=== PATIENT | male | born 1935 | race Caucasian/White ===

== ENCOUNTER 2018-05-05 12:23 | Inpatient (IN) | payer OTHER ==
[2018-05-02 10:00] LABS: BASOPHILS # (AUTO) 0.1 (0.0-0.1); BASOPHILS % 1.6 % (0.0-1.0); EOSINOPHILS # (AUTO) 1.4 (0.0-0.4); EOSINOPHILS % 18.2 % (0.0-6.0); HEMATOCRIT 45.1 % (38.2-49.6); LYMPHOCYTES # (AUTO) 1.8 (1.0-3.2); LYMPHOCYTES % 24.4 % (18.0-39.1); MEAN CORPUSCULAR HEMOGLOBIN 31.5 pg (28-32); MEAN CORPUSCULAR HGB CONC 33.3 g/dL (31-35); MEAN CORPUSCULAR VOLUME 94.7 fL (81-99); MONOCYTES # (AUTO) 0.8 (0.2-0.8); MONOCYTES % 10.2 % (4.4-11.3); NEUTROPHILS # (AUTO) 3.4 (2.1-6.9); NEUTROPHILS % 45.2 % (38.7-80.0); PLATELET COUNT 158 x10e3/uL (140-360); RED BLOOD COUNT 4.76 x10e6/uL (4.3-5.7); RED CELL DISTRIBUTION WIDTH 12.4 % (11.7-14.4)
[2018-05-02 10:21] LABS: ALANINE AMINOTRANSFERASE 20 IU/L (0-55); ALBUMIN 4.3 g/dL (3.5-5.0); ALBUMIN/GLOBULIN RATIO 1.7 (0.8-2.0); ALKALINE PHOSPHATASE 54 IU/L (40-150); ANION GAP 12.3 mmol/L (8-16); BLOOD UREA NITROGEN 17 mg/dL (7-26); BUN/CREATININE RATIO 20 (6-25); CALCIUM 9.4 mg/dL (8.4-10.2); CARBON DIOXIDE 28 mmol/L (22-29); CHLORIDE 104 mmol/L (98-107); CREATININE, SERUM 0.84 mg/dL (0.72-1.25); EST GLOMERULAR FILTRATION RATE > 60 ML/MIN (60-); GLUCOSE 70 mg/dL (74-118); POTASSIUM 4.3 mmol/L (3.5-5.1); SODIUM 140 mmol/L (136-145)
--- NOTE | 2018-05-02 10:35 | Diagnostic Imaging Report ---
PROCEDURE: Frontal and lateral views of the chest. COMPARISON: None. INDICATIONS: PREOP CXR FINDINGS: Lines/tubes: None. Lungs: There are patchy opacities at the lung bases without lobar consolidation. No evidence of pulmonary edema. Pleura: There is no pleural effusion or pneumothorax. Heart and mediastinum: The cardiomediastinal silhouette is unremarkable. Status post CABG. Atherosclerotic calcifications of the aortic arch. Bones: No acute bony abnormality. Status post median sternotomy. IMPRESSION: Patchy opacities at the lung bases, likely atelectasis. Follow-up chest radiograph is suggested in 6-8 weeks to assess for resolution. No evidence of lobar pneumonia or pulmonary edema. Dictated by: KATHRYN MUELLER M.D. on 05/02/2018 at 10:43 Electronically approved by: KATHRYN MUELLER M.D. on 05/02/2018 at 10:43
[2018-05-05] VITALS (24 sets, daily range): BP systolic 115–184; BP diastolic 71–120
[~2018-05-05] VITALS: Ht 177.8 cm; Wt 101.6 kg
[~2018-05-05 12:23] MED LIST: ACETAMINOPHEN 1000 MG/100 ML IV ONE; ASPIR 8181 MG PO; ATORVASTATIN CA20 MG PO; CALCIUM ACETAT667 MG PO; DEXAMETHASONE SOD PHOS INJ 4 MG/ML VIAL ONE; DOCUSATE SODIU100 MG PO; EPHEDRINE SULFATE INJ 50 MG/10 ML SYR ONE; FENTANYL CITRATE/PF 100MCG/2 ML INJ ONE; FERROUS SULFAT325 MG PO; GLYCOPYRROLATE INJ 1MG/ 5 ML SYR ONE; LIDOCAINE HCL 2% LOCAL INJ 5 ML SDV VIAL INJ ONE; LISINOPRIL2.5 MG PO; MAGNESIUM OXID400 MG PO; METOPROLOL SUCC50 MG PO; MIDAZOLAM HCL 2 MG/2 ML VIAL ONE; NEOSTIGMINE 5 MG/5ML SYR ONE; ONDANSETRON HCL INJ 2 MG/ML VIAL ONE; PROPOFOL IV EMULSION 10 MG/ML 20 ML VIAL ONE; ROCURONIUM BROMIDE 10 MG/ML 5ML VIAL ONE; SENNA LAXATIVE8.6 MG PO; SEVOFLURANE INHAL SOLN 250 ML PEN BTL ONE; TAMSULOSIN HCL0.4 MG PO
--- OUTSIDE RECORDS SUMMARY | 2018-05-05 12:25 | XMS REPORT ---
Author Author [facility] Address Unknown Phone Unavailable Care Team Providers Care Livestock Commission Agent Name Role Phone IRA ARAYA Unavailable Unavailable Problems This patient has no known problems. Allergies, Adverse Reactions, Alerts This patient has no known allergies or adverse reactions. Medications This patient has no known medications. Results Test Description Test Time Test Comments Text Results Atomic Results Result Comments CHEST 2 VIEWS 2018-05-02 10:43:00 [place] [address] Patient Name: BRIELLE PACHECO MR #: [id number] : 1935 Age/Sex: 83/M Req #: [id number] [facility] Physician: Ordered by: IRA ARAYA MD Report #: [id number] Location: OR Room/Bed: Procedure: [id number] DX/CHEST 2 VIEWS Exam Date: Exam Time: REPORT STATUS: Signed PROCEDURE: Frontal and lateral views of the chest. COMPARISON: None. INDICATIONS: PREOP CXR FINDINGS: Lines/tubes: None. Lungs: There are patchy opacities at the lung bases without lobar consolidation. No evidence of pulmonary edema. Pleura: There is no pleural effusion or pneumothorax. Heart and mediastinum: The cardiomediastinal silhouette is unremarkable. Status post CABG. Atherosclerotic calcifications of the aortic arch. Bones: No acute bony abnormality. Status post median sternotomy. IMPRESSION: Patchy opacities at the lung bases, likely atelectasis. Follow-up chest radiograph is suggested in 6-8 weeks to assess for resolution. No evidence of lobar pneumonia or pulmonary edema. Dictated by: KATHRYN MUELLER M.D. on 05/02/2018 at 10:43 Electronically approved by: KATHRYN MUELLER M.D. on 05/02/2018 at 10:43 Dictated By: KATHRYN MUELLER MD 1043 Transcribed By: JORGE on 05/02/18 1043 COPY TO: IRA ARAYA MD
[2018-05-05] MEDS ORDERED: CEFAZOLIN SOD 1 GM VIAL ONE (12:44)
[2018-05-05] MEDS ORDERED: THROMBIN FOR SOLN 5,000 UNIT VIAL ONE (13:13)
[2018-05-05] MEDS ORDERED: MANNITOL 25% 12.5GM/50ML 0 ML ONE (13:13)
[2018-05-05] MEDS ORDERED: GELATIN SPONGE 12-7MM ONE (13:13)
[2018-05-05] MEDS ORDERED: HEPARIN SOD/SOD CHLORIDE 1,000 ML ONE (13:55)
[2018-05-05] MEDS: D5.45%NS/KCL 20MEQ 1,000 ML IV SCH (16:41)
[2018-05-05] MEDS ORDERED: DIPHENHYDRAMINE HCL INJ 50 MG/ML VIAL IM PRN (16:45)
[2018-05-05] MEDS ORDERED: NALOXONE HCL INJ 0.4 MG/ML AMP IV PRN (16:45)
[2018-05-05] MEDS ORDERED: ONDANSETRON HCL INJ 2 MG/ML VIAL IV PRN (16:45)
[2018-05-05] MEDS ORDERED: ACETAMINOPHEN 1000 MG/100 ML IV PRN (16:45)
[2018-05-05] MEDS: SODIUM CHLORIDE 0.9% 250ML IRRIG IR SCH ×2 (16:45→20:45)
[2018-05-05] MEDS: DOCUSATE SODIUM 100 MG CAP PO SCH (17:00)
[2018-05-05] MEDS ORDERED: FENTANYL CITRATE/PF 100MCG/2 ML INJ ONE (17:15)
[2018-05-05] MEDS ORDERED: HYDROMORPHONE 2MG/ML 2 MG/ML ML ONE (17:30)
[2018-05-05] MEDS ORDERED: MORPHINE SULFATE 1 MG/ML 30ML PCA ONE (17:49)
[2018-05-05] MEDS ORDERED: MORPHINE SULFATE 2 MG/ML SYR ONE (17:51)
--- NOTE | 2018-05-05 18:07 | Diagnostic Imaging Report ---
Examination: Single AP view of the chest. COMPARISON: None. INDICATION: Rule out pneumothorax IMPRESSION: Exam limited by patient rotation. 1. Lines and Tubes: Right sided IJ catheter with distal tip projecting in the mid SVC. Enteric tube is below the left hemidiaphragm, however, distal tip is not visualized. 2. Bibasilar atelectasis. No definite pneumothorax is identified. 3. Prominent cardiac silhouette, which is partly due to AP projection. Bilateral central pulmonary venous congestion and mild perihilar interstitial edema. 4. No acute bony abnormalities. Signed by: Dr. Arthur Talley M.D. on 05/05/2018 6:04 PM
[2018-05-05] MEDS: MORPHINE SULFATE 1 MG/ML 30ML PCA IV PRN ×2 (18:21→22:15)
[2018-05-05] MEDS: CEFAZOLIN SOD 1 GM VIAL IV SCH (22:00)
[2018-05-05] MEDS ORDERED: CEFAZOLIN SOD 1 GM/D5W 50ML 50 ML IV SCH (22:00)
[2018-05-06] VITALS (90 sets, daily range): BP systolic 115–164; BP diastolic 58–90
[2018-05-06] MEDS: SODIUM CHLORIDE 0.9% 250ML IRRIG IR SCH ×2 (01:10→04:46)
[2018-05-06] MEDS: MORPHINE SULFATE 1 MG/ML 30ML PCA IV PRN (01:11)
[2018-05-06] MEDS: D5.45%NS/KCL 20MEQ 1,000 ML IV SCH ×2 (01:24→09:17)
[2018-05-06 05:02] LABS: BASOPHILS % 0.2 % (0.0-1.0); EOSINOPHILS % 0.1 % (0.0-6.0); HEMATOCRIT 40.5 % (38.2-49.6); HEMOGLOBIN 13.8 g/dL (14.0-18.0); LYMPHOCYTES # (AUTO) 0.8 (1.0-3.2); LYMPHOCYTES % 5.5 % (18.0-39.1); MEAN CORPUSCULAR HEMOGLOBIN 31.9 pg (28-32); MEAN CORPUSCULAR HGB CONC 34.1 g/dL (31-35); MEAN CORPUSCULAR VOLUME 93.8 fL (81-99); MONOCYTES # (AUTO) 1.2 (0.2-0.8); MONOCYTES % 8.2 % (4.4-11.3); NEUTROPHILS # (AUTO) 12.5 (2.1-6.9); NEUTROPHILS % 85.6 % (38.7-80.0); PLATELET COUNT 172 x10e3/uL (140-360); RED BLOOD COUNT 4.32 x10e6/uL (4.3-5.7); RED CELL DISTRIBUTION WIDTH 12.1 % (11.7-14.4)
[2018-05-06 05:20] LABS: ANION GAP 12.1 mmol/L (8-16); CALCIUM 8.4 mg/dL (8.4-10.2); CREATININE, SERUM 1.18 mg/dL (0.72-1.25); POTASSIUM 4.1 mmol/L (3.5-5.1)
[2018-05-06] MEDS: CEFAZOLIN SOD 1 GM VIAL IV SCH ×3 (06:08→21:19)
[2018-05-06] MEDS: DOCUSATE SODIUM 100 MG CAP PO SCH ×3 (09:00→17:00)
[2018-05-06] MEDS ORDERED: MORPHINE SULFATE 1 MG/ML 30ML PCA IV PRN (11:00)
[2018-05-07] VITALS (43 sets, daily range): BP systolic 121–185; BP diastolic 65–121
[2018-05-07] MEDS: D5.45%NS/KCL 20MEQ 1,000 ML IV SCH (03:17)
[2018-05-07 05:03] LABS: BASOPHILS # (AUTO) 0.1 (0.0-0.1); BASOPHILS % 0.7 % (0.0-1.0); EOSINOPHILS # (AUTO) 0.2 (0.0-0.4); EOSINOPHILS % 1.6 % (0.0-6.0); HEMATOCRIT 39.1 % (38.2-49.6); HEMOGLOBIN 12.9 g/dL (14.0-18.0); LYMPHOCYTES # (AUTO) 0.9 (1.0-3.2); MEAN CORPUSCULAR HEMOGLOBIN 31.9 pg (28-32); MEAN CORPUSCULAR VOLUME 96.8 fL (81-99); MONOCYTES # (AUTO) 1.2 (0.2-0.8); MONOCYTES % 11.6 % (4.4-11.3); NEUTROPHILS # (AUTO) 7.6 (2.1-6.9); PLATELET COUNT 135 x10e3/uL (140-360); RED BLOOD COUNT 4.04 x10e6/uL (4.3-5.7); RED CELL DISTRIBUTION WIDTH 12.5 % (11.7-14.4)
[2018-05-07 05:21] LABS: ANION GAP 10.2 mmol/L (8-16); CALCIUM 8.5 mg/dL (8.4-10.2); CREATININE, SERUM 1.2 mg/dL (0.72-1.25); POTASSIUM 4.2 mmol/L (3.5-5.1)
[2018-05-07] MEDS: CEFAZOLIN SOD 1 GM VIAL IV SCH ×3 (06:16→20:24)
[2018-05-07] MEDS ORDERED: MAGNESIUM HYDROXIDE 30 ML UDC PO PRN (08:45)
[2018-05-07] MEDS ORDERED: MORPHINE SULFATE INJ 4 MG/ML INJ IV PRN (08:45)
[2018-05-07] MEDS ORDERED: BISACODYL 10 MG SUPP PR PRN (11:00)
[2018-05-07] MEDS ORDERED: BISACODYL 10 MG SUPP PR NR (11:30)
[2018-05-07] MEDS: SENNOSIDES 8.6 MG TAB PO SCH ×2 (12:07→17:55)
[2018-05-07] MEDS: ACETAMINOPHEN/CODEINE 300MG - 30MG TAB PO PRN ×2 (12:07→17:55)
[2018-05-07] MEDS: MORPHINE SULFATE INJ 4 MG/ML INJ IV PRN (20:24)
[2018-05-08] VITALS (24 sets, daily range): BP systolic 98–198; BP diastolic 58–118
[2018-05-08] MEDS: MORPHINE SULFATE INJ 4 MG/ML INJ IV PRN ×3 (05:01→17:20)
[2018-05-08] MEDS: METOPROLOL TARTRATE 25 MG TAB PO SCH ×3 (06:00→13:46)
[2018-05-08 06:35] LABS: BASOPHILS # (AUTO) 0.1 (0.0-0.1); BASOPHILS % 0.6 % (0.0-1.0); EOSINOPHILS # (AUTO) 0.6 (0.0-0.4); HEMATOCRIT 41.6 % (38.2-49.6); HEMOGLOBIN 13.6 g/dL (14.0-18.0); LYMPHOCYTES # (AUTO) 1.2 (1.0-3.2); MEAN CORPUSCULAR HEMOGLOBIN 31.5 pg (28-32); MEAN CORPUSCULAR HGB CONC 32.7 g/dL (31-35); MEAN CORPUSCULAR VOLUME 96.3 fL (81-99); MONOCYTES # (AUTO) 0.9 (0.2-0.8); MONOCYTES % 9.4 % (4.4-11.3); NEUTROPHILS # (AUTO) 7.1 (2.1-6.9); NEUTROPHILS % 71.8 % (38.7-80.0); PLATELET COUNT 138 x10e3/uL (140-360); RED BLOOD COUNT 4.32 x10e6/uL (4.3-5.7); RED CELL DISTRIBUTION WIDTH 12.4 % (11.7-14.4)
[2018-05-08 06:39] LABS: ANION GAP 14.1 mmol/L (8-16); BLOOD UREA NITROGEN 11 mg/dL (7-26); BUN/CREATININE RATIO 11 (6-25); CALCIUM 9.4 mg/dL (8.4-10.2); CARBON DIOXIDE 29 mmol/L (22-29); CHLORIDE 102 mmol/L (98-107); CREATININE, SERUM 1.04 mg/dL (0.72-1.25); EST GLOMERULAR FILTRATION RATE > 60 ML/MIN (60-); GLUCOSE 102 mg/dL (74-118); POTASSIUM 4.1 mmol/L (3.5-5.1); SODIUM 141 mmol/L (136-145)
[2018-05-08] MEDS: CEFAZOLIN SOD 1 GM VIAL IV SCH ×3 (07:19→13:46)
[2018-05-08] MEDS: SENNOSIDES 8.6 MG TAB PO SCH ×2 (09:00→16:35)
[2018-05-08] MEDS: ACETAMINOPHEN/CODEINE 300MG - 30MG TAB PO PRN ×3 (09:23→16:36)
[2018-05-08] MEDS ORDERED: DILTIAZEM HCL 5 MG/ML 5 ML VIAL IV STA (12:53)
[2018-05-08] MEDS ORDERED: DILTIAZEM HCL 100 ML IV SCH (13:00)
[2018-05-08] MEDS ORDERED: METOPROLOL TARTRATE INJ 1 MG/ML VIAL IV PRN (13:00)
[2018-05-08] MEDS ORDERED: DILTIAZEM HCL VIAL 5 ML ONE (13:04)
[2018-05-08] MEDS ORDERED: DILTIAZEM HCL IV SOLN 125 MG in SODIUM CHLORIDE 0.9% 100 ML IV SCH (13:30)
[2018-05-08] MEDS: DILTIAZEM HCL IV SOLN 125 MG in SODIUM CHLORIDE 0.9% 100 ML IV SCH (13:38)
--- NOTE | 2018-05-08 14:12 | Consultation ---
DATE OF CONSULTATION: May 08, 2018 REASON FOR CONSULTATION: Atrial fibrillation with rapid ventricular rate. HISTORY OF PRESENT ILLNESS: Mr. Marquez is an 83-year-old gentleman with a past medical history as listed below. Underwent radical right nephrectomy. Postoperatively, the patient went into AFib with rapid ventricular rate and so I was consult. Patient has some discomfort in his abdomen. Otherwise, denies any chest pain, shortness of breath or palpitations. Heart rate is ranging from the 130s to the 160s. REVIEW OF SYSTEMS CONSTITUTIONAL: Has some fatigue and weakness. HEENT: No headache, blurring of vision, seizure, or syncope. CARDIOVASCULAR: No chest pain, dyspnea, orthopnea, PND, or palpitations. RESPIRATORY: No cough, fever or expectoration. GI: Some abdominal discomfort. No vomiting or diarrhea. ALLERGIES: NO KNOWN DRUG ALLERGIES. MEDICATIONS: See list. PAST MEDICAL HISTORY 1. History of right renal mass, status post right nephrectomy. 2. History of UTIs. 3. History of hypertension. 4. History of CAD and CABG. 5. History of arthritis. 6. History of melanoma. 7. History hyperlipidemia. SURGICAL HISTORY: History of CABG, history of knee surgery. SOCIAL HISTORY: Does not smoke or drink. FAMILY HISTORY: Noncontributory. PHYSICAL EXAMINATION GENERAL: A well-built and nourished gentleman awake, alert and not in any obvious distress. A little hard of hearing. VITALS: Heart rate is 146, blood pressure 141/95, respiratory rate 18. HEENT: Atraumatic. NECK: No JVD, bruit, thyromegaly, or lymphadenopathy. CARDIOVASCULAR: First and 2nd heart sounds heard. No murmurs, rubs or gallops appreciated. CHEST: Decreased air entry at the bases. No adventitious sounds appreciated. ABDOMEN: Mild distention. Soft. EXTREMITIES: No edema. LABS: EKG shows atrial fibrillation at 152 beats per minute. Leftward axis, right bundle branch block, inferior infarct, and secondary ST-T changes. Sodium is 141, potassium 4.1, chloride 102, bicarb 29, BUN is 11, creatinine 1, glucose 102. Hemoglobin 13.6, hematocrit 41.6 and platelets 138,000. White count is 9.9. IMPRESSION 1. Atrial fibrillation with rapid ventricular rate. 2. Status post right nephrectomy. 3. Hypertension. 4. History of coronary artery disease and coronary artery bypass graft. PLAN 1. The patient is postop. Will start him on IV diltiazem. 2. Will also give him metoprolol p.r.n. 3. Will get an echocardiogram to assess LV function and valvular function. 4. Lovenox if okay with urology. 5. Check thyroid function test. 6. Further cardiac workup depending on clinical course. Discussed my impression and plan of management with the patient and he understands. As always, I appreciate and thank you very much for the referral. Job#: [id number] MARS
[2018-05-09] VITALS (32 sets, daily range): BP systolic 85–142; BP diastolic 56–97
[2018-05-09] MEDS: DILTIAZEM HCL IV SOLN 125 MG in SODIUM CHLORIDE 0.9% 100 ML IV SCH (01:20)
[2018-05-09 04:46] LABS: BASOPHILS % 0.4 % (0.0-1.0); EOSINOPHILS # (AUTO) 1.1 (0.0-0.4); HEMATOCRIT 39.1 % (38.2-49.6); LYMPHOCYTES # (AUTO) 0.9 (1.0-3.2); LYMPHOCYTES % 9.2 % (18.0-39.1); MEAN CORPUSCULAR HEMOGLOBIN 31.9 pg (28-32); MEAN CORPUSCULAR HGB CONC 33.2 g/dL (31-35); MEAN CORPUSCULAR VOLUME 96.1 fL (81-99); MONOCYTES # (AUTO) 0.9 (0.2-0.8); MONOCYTES % 9.5 % (4.4-11.3); NEUTROPHILS # (AUTO) 6.9 (2.1-6.9); NEUTROPHILS % 69.7 % (38.7-80.0); PLATELET COUNT 149 x10e3/uL (140-360); RED BLOOD COUNT 4.07 x10e6/uL (4.3-5.7); RED CELL DISTRIBUTION WIDTH 12.2 % (11.7-14.4)
[2018-05-09 05:07] LABS: ANION GAP 12.1 mmol/L (8-16); BLOOD UREA NITROGEN 16 mg/dL (7-26); BUN/CREATININE RATIO 16 (6-25); CALCIUM 9.3 mg/dL (8.4-10.2); CARBON DIOXIDE 30 mmol/L (22-29); CHLORIDE 103 mmol/L (98-107); CREATININE, SERUM 1.03 mg/dL (0.72-1.25); EST GLOMERULAR FILTRATION RATE > 60 ML/MIN (60-); GLUCOSE 103 mg/dL (74-118); POTASSIUM 4.1 mmol/L (3.5-5.1); SODIUM 141 mmol/L (136-145)
[2018-05-09] MEDS: ACETAMINOPHEN/CODEINE 300MG - 30MG TAB PO PRN (06:00)
[2018-05-09] MEDS: CEFAZOLIN SOD 1 GM VIAL IV SCH ×3 (06:19→21:37)
[2018-05-09] MEDS: METOPROLOL TARTRATE 25 MG TAB PO SCH ×3 (06:20→21:37)
[2018-05-09] MEDS: SENNOSIDES 8.6 MG TAB PO SCH ×2 (09:00→16:50)
[2018-05-09] MEDS: MORPHINE SULFATE INJ 4 MG/ML INJ IV PRN (17:52)
[2018-05-09] MEDS: ONDANSETRON HCL INJ 2 MG/ML VIAL IV PRN (17:52)
[2018-05-10] VITALS (8 sets, daily range): BP systolic 120–144; BP diastolic 65–75
[2018-05-10] MEDS: ONDANSETRON HCL INJ 2 MG/ML VIAL IV PRN (02:34)
[2018-05-10] MEDS: MORPHINE SULFATE INJ 4 MG/ML INJ IV PRN (02:36)
[2018-05-10] MEDS: CEFAZOLIN SOD 1 GM VIAL IV SCH (05:11)
[2018-05-10] MEDS: METOPROLOL TARTRATE 25 MG TAB PO SCH ×3 (05:12→21:23)
[2018-05-10] MEDS: ACETAMINOPHEN/CODEINE 300MG - 30MG TAB PO PRN (08:27)
[2018-05-10] MEDS: SENNOSIDES 8.6 MG TAB PO SCH ×2 (08:27→16:38)
[2018-05-10] MEDS ORDERED: ONDANSETRON HCL 4 MG ORAL DISINTEGRATING TAB PO PRN (11:15)
[2018-05-10] MEDS: CEPHALEXIN 500 MG CAP PO SCH ×2 (14:30→21:22)
[2018-05-10] MEDS: HYDROCODONE/APAP 7.5MG-325MG 1 EA TAB PO PRN ×2 (15:04→22:11)
[2018-05-10] MEDS ORDERED: SENNOSIDES 8.6 MG TAB PO SCH (17:00)
[2018-05-11] VITALS (8 sets, daily range): BP systolic 133–167; BP diastolic 68–84
[2018-05-11] MEDS: CEPHALEXIN 500 MG CAP PO SCH ×3 (05:28→22:27)
[2018-05-11] MEDS: METOPROLOL TARTRATE 25 MG TAB PO SCH (05:30)
[2018-05-11] MEDS: SENNOSIDES 8.6 MG TAB PO SCH ×2 (08:33→16:12)
[2018-05-11] MEDS: HYDROCODONE/APAP 7.5MG-325MG 1 EA TAB PO PRN ×3 (08:58→22:35)
[2018-05-11] MEDS: BACITRACIN ZINC 15 GM OINT TOP SCH (11:37)
[2018-05-11] MEDS: LISINOPRIL 2.5 MG TAB PO SCH (16:12)
[2018-05-11] MEDS ORDERED: ATORVASTATIN 20 MG TAB PO SCH (21:00)
[2018-05-11] MEDS ORDERED: METOPROLOL SUCCINATE 50 MG TAB XL PO SCH (21:00)
[2018-05-11] MEDS ORDERED: TAMSULOSIN HCL 0.4 MG CAP PO SCH (21:00)
[2018-05-12] VITALS: BP 122/62
[2018-05-12 04:00] VITALS: BP 117/63
[2018-05-12 05:17] LABS: BASOPHILS # (AUTO) 0.1 (0.0-0.1); BASOPHILS % 0.7 % (0.0-1.0); EOSINOPHILS # (AUTO) 1.3 (0.0-0.4); EOSINOPHILS % 15.1 % (0.0-6.0); HEMATOCRIT 38.9 % (38.2-49.6); HEMOGLOBIN 12.7 g/dL (14.0-18.0); LYMPHOCYTES # (AUTO) 1.3 (1.0-3.2); LYMPHOCYTES % 14.6 % (18.0-39.1); MEAN CORPUSCULAR HEMOGLOBIN 31.4 pg (28-32); MEAN CORPUSCULAR HGB CONC 32.6 g/dL (31-35); MONOCYTES # (AUTO) 0.9 (0.2-0.8); MONOCYTES % 10.5 % (4.4-11.3); NEUTROPHILS # (AUTO) 5.2 (2.1-6.9); NEUTROPHILS % 58.5 % (38.7-80.0); PLATELET COUNT 199 x10e3/uL (140-360); RED BLOOD COUNT 4.05 x10e6/uL (4.3-5.7); RED CELL DISTRIBUTION WIDTH 12.3 % (11.7-14.4)
[2018-05-12 05:38] LABS: ANION GAP 13.7 mmol/L (8-16); BLOOD UREA NITROGEN 21 mg/dL (7-26); BUN/CREATININE RATIO 19 (6-25); CALCIUM 9.4 mg/dL (8.4-10.2); CARBON DIOXIDE 31 mmol/L (22-29); CHLORIDE 102 mmol/L (98-107); CREATININE, SERUM 1.12 mg/dL (0.72-1.25); EST GLOMERULAR FILTRATION RATE > 60 ML/MIN (60-); GLUCOSE 106 mg/dL (74-118); POTASSIUM 4.7 mmol/L (3.5-5.1); SODIUM 142 mmol/L (136-145)
[2018-05-12] MEDS: CEPHALEXIN 500 MG CAP PO SCH ×2 (06:40→13:50)
[2018-05-12 08:37] VITALS: BP 133/88
[2018-05-12] MEDS ORDERED: ASPIRIN 81 MG CHEW TAB PO SCH (09:00)
[2018-05-12] MEDS: LISINOPRIL 2.5 MG TAB PO SCH (09:17)
[2018-05-12] MEDS: SENNOSIDES 8.6 MG TAB PO SCH (09:17)
[2018-05-12] MEDS: BACITRACIN ZINC 15 GM OINT TOP SCH ×2 (09:17→16:26)
[2018-05-12 09:23] VITALS: BP 133/88
[2018-05-12] MEDS ORDERED: TYLENOL WITH C1 EACH PO (13:21)
[2018-05-12] MEDS ORDERED: COLACE100 MG PO (13:22)
--- NOTE | 2018-05-12 13:23 | Discharge Summary ---
PRIMARY CARE PHYSICIAN: Lester Dominguez MD CONSULTANTS 1. Dr. Pramod Melo 2. Dr. Papo Doss FINAL DIAGNOSES 1. Status post right nephrectomy. 2. Paroxysmal atrial fibrillation. SUMMARY: This 83-year-old male had elective surgical intervention by Dr. Papo Doss with right nephrectomy. The patient was admitted to the ICU for postoperative care. Patient was admitted to hi for medical management along with postoperative care. While he was getting postoperative care for his right nephrectomy, the patient had an episode of paroxysmal atrial fibrillation. Dr. Melo was consulted. The patient is stable now. He is back to his baseline of normal sinus rhythm. The patient, however, will require anticoagulant therapy, and Xarelto 20 mg has been initiated on recommendation by Dr. Melo and has been approved by Dr. Papo Doss. The patient is stable and discharged home today. Patient will get Xarelto 20 mg daily. He will resume his home medication. He will continue to follow up with Dr. Melo as an outpatient for his cardiac issue and also Dr. Doss for his postoperative care. The patient is stable and discharged home. Job#: [id number] cc:LESTER DOMINGUEZ MD
[2018-05-12] MEDS ORDERED: XARELTO20 MG PO (13:25)
[2018-05-12] MEDS ORDERED: KEFLEX500 MG PO (13:26)
[2018-05-12] MEDS ORDERED: RIVAROXABAN 20 MG TABLET PO SCH (17:00)
--- NOTE | 2018-06-15 23:22 | Operative Report ---
DATE OF PROCEDURE: May 05, 2018 PREOPERATIVE DIAGNOSIS: Right renal tumor consistent with renal cell carcinoma. 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 OPERATION PERFORMED: Right radical nephrectomy. FLOSSER: Dr. Zaira Doss MD COMPLICATIONS: None. CLINICAL SUMMARY: Silver Marquez is an 83-year-old man with a right renal mass. He is brought for the above procedures. He is aware of the risks of bleeding, infection, injury to adjacent structures, incomplete cancer resection, cancer recurrence, renal failure, potential need for dialysis. He understood all these risks and elected to proceed. OPERATIVE PROCEDURE IN DETAIL: Informed consent was verified. Silver Marquez was properly identified, taken to the operating room, and placed on the operating table in supine position. Anesthesia was uneventfully begun. Following placement of Serna catheter, the patient was then carefully and gently repositioned in a flank position with all pressure points carefully well padded. His chest, abdomen, and back were prepared and draped in usual sterile fashion. A right twelfth rib incision was then made, carried through all layers of the abdominal and chest plascencia. An extrapleural, extraperitoneal approach was utilized. We isolated the patient's kidney. We ligated and divided the ureter. We then isolated, doubly ligated, and divided the renal artery, then isolated, doubly ligated, and divided the renal vein. The specimen was then removed from the field. Copious irrigation was performed. Hemostasis was verified. The patient's incision was then approximated in layers utilizing heavy Vicryl suture in interrupted figure-of-8 fashion. Skin was approximated with skin jermaine. The patient was then uneventfully reversed from anesthesia and taken to recovery room in stable condition. There were no complications to the procedure. He tolerated the procedure well. Plans will be to proceed with routine postoperative care. Of course, we plan on performing life-long follow up on this cancer patient. Job#: [id number]
== END 2018-05-12 16:46 | disposition home or self-care (01) | DRG 658 ==
LOC: OR 12:23 → ICU 19:33 → MED/SURG 05-09 15:40 → ICU 05-09 15:42 → MED/SURG 05-09 16:03
PROVIDERS: ADMIT Internal Medicine; ATTEND Internal Medicine
PROC: 02HV33Z Insertion of Infusion Device into Superior Vena Cava, Percutaneous Approach (ICD-10-PCS; 2018-05-05)
PROC: 0TT00ZZ Resection of Right Kidney, Open Approach (ICD-10-PCS; principal; 2018-05-05 15:30)
DX: C64.1 Malignant neoplasm of right kidney, except renal pelvis (principal); I48.0 Paroxysmal atrial fibrillation; I10 Essential (primary) hypertension; I25.10 Atherosclerotic heart disease of native coronary artery without angina pectoris; M19.90 Unspecified osteoarthritis, unspecified site; E78.5 Hyperlipidemia, unspecified; N40.1 Benign prostatic hyperplasia with lower urinary tract symptoms; R33.8 Other retention of urine; R35.1 Nocturia; E66.01 Morbid (severe) obesity due to excess calories; K42.9 Umbilical hernia without obstruction or gangrene; Z95.1 Presence of aortocoronary bypass graft; Z68.32 Body mass index [BMI] 32.0-32.9, adult; Z28.21 Immunization not carried out because of patient refusal; Z79.82 Long term (current) use of aspirin
CPT/HCPCS: 36415; 71045; 71046; 80048; 80053; 83735; 84443; 85025; 86850; 86900; 86920; 88309; 93005; 96361; 96365; 96366; 97139; J0690; J1100; J2001; J2150; J2250; J2270; J2405; J7050

== ENCOUNTER 2018-05-22 22:05 | Emergency (ER) | payer OTHER ==
[~2018-05-22] VITALS: Ht 177.8 cm; Wt 101.6 kg
[~2018-05-22 22:05] MED LIST changes: -ACETAMINOPHEN 1000 MG/100 ML IV ONE; +COLACE100 MG PO; -DEXAMETHASONE SOD PHOS INJ 4 MG/ML VIAL ONE; -EPHEDRINE SULFATE INJ 50 MG/10 ML SYR ONE; -FENTANYL CITRATE/PF 100MCG/2 ML INJ ONE; -GLYCOPYRROLATE INJ 1MG/ 5 ML SYR ONE; +KEFLEX500 MG PO; -LIDOCAINE HCL 2% LOCAL INJ 5 ML SDV VIAL INJ ONE; -MIDAZOLAM HCL 2 MG/2 ML VIAL ONE; -NEOSTIGMINE 5 MG/5ML SYR ONE; -ONDANSETRON HCL INJ 2 MG/ML VIAL ONE; -PROPOFOL IV EMULSION 10 MG/ML 20 ML VIAL ONE; -ROCURONIUM BROMIDE 10 MG/ML 5ML VIAL ONE; -SEVOFLURANE INHAL SOLN 250 ML PEN BTL ONE; +TYLENOL WITH C1 EACH PO; +XARELTO20 MG PO
--- OUTSIDE RECORDS SUMMARY | 2018-05-22 22:08 | XMS REPORT ---
Author Author [facility] Address Unknown Phone Unavailable Care Team Providers Care Senior Tax Accountant Name Role Phone IRA ARAYA Unavailable Unavailable Problems This patient has no known problems. Allergies, Adverse Reactions, Alerts This patient has no known allergies or adverse reactions. Medications This patient has no known medications. Results Test Description Test Time Test Comments Text Results Atomic Results Result Comments CHEST SINGLE (PORTABLE) 2018-05-05 18:02:00 [place] [address] Patient Name: BRIELLE PACHECO MR #: [id number] : 1935 Age/Sex: 83/M Req #: [id number] Adm Physician: Ordered by: IRA ARAYA MD Report #: [id number] Location: OR Room/Bed: Procedure: [id number] DX/CHEST SINGLE (PORTABLE) Exam Date: 05/05/18 Exam Time: 1730 REPORT STATUS: Signed Examination: Single AP view of the chest. COMPARISON: None. INDICATION: Rule out pneumothorax IMPRESSION: Exam limited by patient rotation. 1. Lines and Tubes: Right sided IJ catheter with distal tip projecting in the mid SVC. Enteric tube is below the left hemidiaphragm, however, distal tip is not visualized. 2. Bibasilar atelectasis. No definite pneumothorax is identified. 3. Prominent cardiac silhouette, which is partly due to AP projection. Bilateral central pulmonary venous congestion and mild perihilar interstitial edema. 4. No acute bony abnormalities. Signed by: Dr. Oh Talley M.D. on 05/05/2018 6:04 PM Dictated By: OH TALLEY MD 03 Transcribed By: TRAV on 05/05/181803 COPY TO: IRA ARAYA MD CHEST 2 VIEWS 2018-05-02 10:43:00 [place] [address] Patient Name: BRIELLE PACHECO MR #: [id number] : 1935 Age/Sex: 83/M Req #: [id number] Adm Physician: Ordered by: IRA ARAYA MD Report #: [id number] Location: OR Room/Bed: Procedure: [id number] DX/CHEST 2 VIEWS Exam Date: Exam Time: [...] MUELLER MD 1043 Transcribed By: JORGE on 05/02/181042 COPY TO: IRA ARAYA MD
[2018-05-22] MEDS ORDERED: CIPROFLOXACIN500 MG PO (23:02)
[2018-05-22] MEDS ORDERED: CALCIUM600 MG PO (23:02)
[2018-05-22] MEDS ORDERED: AMITIZA24 MCG PO (23:02)
[2018-05-22] MEDS ORDERED: CITRATE OF MAGNESIA 300ML BOTTLE PO ONE (23:30)
--- NOTE | 2018-05-23 00:23 | Diagnostic Imaging Report ---
EXAM: ABDOMEN-1VIEW (KUB), supine INDICATION: Constipation, abdominal pain, nephrectomy 2 weeks ago COMPARISON: None FINDINGS: LINES/TUBES: None BOWEL PATTERN: Large amount of retained stool without evidence for obstruction. SOFT TISSUES: Surgical clips project over the right abdomen consistent with history of nephrectomy. Right lateral surgical jermaine. LUNG BASES: Not included BONES: No acute findings. IMPRESSION: Large amount of retained stool without evidence for obstruction. Signed by: Dr. Edita Purcell M.D. on 05/23/2018 12:19 AM
[2018-05-23 00:26] LABS: BILIRUBIN,URINE NEGATIVE (NEGATIVE); CLARITY,URINE CLEAR (CLEAR); COLOR,URINE YELLOW (YELLOW); EPITHELIAL CELLS,URINE RARE /LPF; KETONES,URINE NEGATIVE (NEGATIVE); LEUKOCYTE ESTERASE ,URINE NEGATIVE (NEGATIVE); NITRITE,URINE NEGATIVE (NEGATIVE); PROTEIN,URINE DIPSTICK NEGATIVE (NEGATIVE); RBC,URINE 0-5 /HPF (0-5); URINE UROBILINOGEN 0.2 mg/dL (0.2 - 1); WBC,URINE (MAN) 0-5 /HPF (0-5)
[2018-05-23 01:07] LABS: BASOPHILS # (AUTO) 0.1 (0.0-0.1); BASOPHILS % 0.7 % (0.0-1.0); EOSINOPHILS # (AUTO) 0.3 (0.0-0.4); EOSINOPHILS % 3.2 % (0.0-6.0); HEMATOCRIT 37.6 % (38.2-49.6); HEMOGLOBIN 12.5 g/dL (14.0-18.0); LYMPHOCYTES % 9.5 % (18.0-39.1); MEAN CORPUSCULAR HEMOGLOBIN 31.4 pg (28-32); MEAN CORPUSCULAR HGB CONC 33.2 g/dL (31-35); MEAN CORPUSCULAR VOLUME 94.5 fL (81-99); MONOCYTES # (AUTO) 0.9 (0.2-0.8); MONOCYTES % 8.3 % (4.4-11.3); NEUTROPHILS # (AUTO) 8.3 (2.1-6.9); NEUTROPHILS % 77.6 % (38.7-80.0); PLATELET COUNT 262 x10e3/uL (140-360); RED BLOOD COUNT 3.98 x10e6/uL (4.3-5.7)
[2018-05-23 01:24] LABS: ALBUMIN 3.6 g/dL (3.5-5.0); ALBUMIN/GLOBULIN RATIO 1.3 (0.8-2.0); ANION GAP 14.9 mmol/L (8-16); CALCIUM 9.5 mg/dL (8.4-10.2); CREATININE, SERUM 1.22 mg/dL (0.72-1.25); POTASSIUM 3.9 mmol/L (3.5-5.1)
[2018-05-23 01:34] LABS: CREATINE KINASE MB 1.9 ng/mL (0-5.0)
[2018-05-23] MEDS ORDERED: SODIUM CHLORIDE 0.9% 500ML 500 ML ONE (01:54)
[2018-05-23] MEDS ORDERED: SODIUM CHLORIDE 0.9% 50ML 50 ML ONE (02:58)
[2018-05-23] MEDS ORDERED: IOPAMIDOL 370 MG/ML 200 ML INFUS..BTL INJ ONE (02:59)
--- NOTE | 2018-05-23 03:34 | Diagnostic Imaging Report ---
EXAM: CT ABDOMEN AND PELVIS with IV CONTRAST INDICATION: Abdominal pain status post effectively 2 weeks ago COMPARISON: None TECHNIQUE: The abdomen and pelvis were scanned using a multidetector helical scanner. Coronal and sagittal reformations were obtained. Dose modulation, iterative reconstruction, and/or weight based adjustment of the mA/kV was utilized to reduce the radiation dose to as low as reasonably achievable. Routine protocol performed. IV Contrast: 100 cc Isovue-370 Oral Contrast: None FINDINGS: LOWER THORAX: No consolidations LIVER: Cyst measuring 1.1 cm and the left lobe of the liver. BILIARY: The gallbladder is unremarkable. No ductal dilation. SPLEEN: No masses PANCREAS: No masses ADRENALS: No nodules KIDNEYS: Right nephrectomy. There is a 9 x 3.6 x 4.8 cm fluid collection in the nephrectomy bed. Simple cortical cyst measuring 1 cm in the interpolar region of the left kidney. Exophytic hyperdense nodule measuring 1.5 cm arising from the inferior pole. GI TRACT: Large amount of retained stool. The rectum is distended to 7.5 cm. No dilated loops of small bowel. Normal appendix. Incidental duodenal diverticulum. VESSELS: Advanced atherosclerotic changes of the abdominal aorta. PERITONEUM/RETROPERITONEUM: No free air or fluid LYMPH NODES: No lymphadenopathy REPRODUCTIVE ORGANS: The prostate measures 5.9 cm in transverse diameter and protrudes into the bladder base. BLADDER: Unremarkable SOFT TISSUES: Normal postsurgical changes of right posterior approach nephrectomy. BONES: No suspicious bone lesions. IMPRESSION: 1. Large amount of retained stool with distention of the rectum to 7.5 cm. No bowel obstruction. 2. Recent right nephrectomy changes with nonspecific 9 x 3.6 x 4.8 cm fluid collection in the renal fossa. 3. Exophytic hyperdense nodule measuring 1.5 cm arising from the inferior pole of the left kidney. Recommend comparison to prior CT is not available at this facility. Signed by: Dr. Edita Purcell M.D. on 05/23/2018 3:30 AM
[2018-05-23] MEDS ORDERED: COLACE100 MG PO (03:37)
[2018-05-23] MEDS ORDERED: MINERAL OIL 132 ML BTL PR ONE ×2 (04:31→04:45)
== END 2018-05-23 04:50 | disposition home or self-care (01) ==
LOC: ER 22:05
DX: R30.0 Dysuria (principal); R10.84 Generalized abdominal pain; K59.00 Constipation, unspecified
CPT/HCPCS: 36415; 74018; 74177; 80053; 81001; 82550; 82553; 83690; 84484; 85025; 87086; 99284; J7040; Q9967

== ENCOUNTER 2018-11-26 08:00 | Inpatient (IN) | payer OTHER ==
[2018-11-24 13:43] LABS: BASOPHILS # (AUTO) 0.1 (0.0-0.1); EOSINOPHILS # (AUTO) 1.1 (0.0-0.4); HEMATOCRIT 42.1 % (38.2-49.6); HEMOGLOBIN 14.1 g/dL (14.0-18.0); LYMPHOCYTES # (AUTO) 1.7 (1.0-3.2); LYMPHOCYTES % 21.2 % (18.0-39.1); MEAN CORPUSCULAR HEMOGLOBIN 31.6 pg (28-32); MEAN CORPUSCULAR HGB CONC 33.5 g/dL (31-35); MEAN CORPUSCULAR VOLUME 94.4 fL (81-99); MONOCYTES # (AUTO) 0.7 (0.2-0.8); MONOCYTES % 8.3 % (4.4-11.3); NEUTROPHILS # (AUTO) 4.3 (2.1-6.9); NEUTROPHILS % 55.1 % (38.7-80.0); PLATELET COUNT 157 x10e3/uL (140-360); RED BLOOD COUNT 4.46 x10e6/uL (4.3-5.7); RED CELL DISTRIBUTION WIDTH 13.2 % (11.7-14.4)
[~2018-11-26] VITALS: Ht 177.8 cm; Wt 98.4 kg
[~2018-11-26 08:00] MED LIST changes: +AMITIZA24 MCG PO; +CALCIUM600 MG PO; +CIPROFLOXACIN500 MG PO; +FINASTERIDE5 MG PO; +IRON PO
[2018-11-26] MEDS ORDERED: GENTAMICIN 80MG/NS 100 ML 200 ML IV ONE (08:11)
[2018-11-26] MEDS ORDERED: CEFTRIAXONE SOD 1 GM/NS 50 ML 50 ML IV ONE (08:11)
[2018-11-26] MEDS ORDERED: BELLADONNA/OPIUM 60 MG SUPP PR ONE (10:40)
[2018-11-26] MEDS ORDERED: IOPAMIDOL 610MG/1ML 300 MG/ML VIAL IV ONE (10:41)
[2018-11-26] MEDS ORDERED: ACETAMINOPHEN 1000 MG/100 ML 100 ML IV ONE (11:38)
[2018-11-26] MEDS: D5.45%NS/KCL 20MEQ 1,000 ML IV SCH ×2 (13:12→23:54)
[2018-11-26] MEDS ORDERED: BELLADONNA/OPIUM 30 MG SUPP RC PRN (13:15)
[2018-11-26] MEDS ORDERED: ACETAMINOPHEN/CODEINE 300MG - 30MG TAB PO PRN (13:15)
[2018-11-26] MEDS ORDERED: DIPHENHYDRAMINE HCL 25 MG CAP PO PRN (13:15)
[2018-11-26] MEDS ORDERED: ONDANSETRON HCL INJ 2MG/ML 2ML 2 MG/ML VIAL IV PRN (13:15)
[2018-11-26 13:56] LABS: BASOPHILS % 0.5 % (0.0-1.0); EOSINOPHILS # (AUTO) 0.4 (0.0-0.4); HEMATOCRIT 42.8 % (38.2-49.6); HEMOGLOBIN 14.3 g/dL (14.0-18.0); LYMPHOCYTES % 13.5 % (18.0-39.1); MEAN CORPUSCULAR HEMOGLOBIN 31.6 pg (28-32); MEAN CORPUSCULAR HGB CONC 33.4 g/dL (31-35); MEAN CORPUSCULAR VOLUME 94.7 fL (81-99); MONOCYTES # (AUTO) 0.2 (0.2-0.8); NEUTROPHILS # (AUTO) 5.6 (2.1-6.9); NEUTROPHILS % 76.3 % (38.7-80.0); PLATELET COUNT 153 x10e3/uL (140-360); RED BLOOD COUNT 4.52 x10e6/uL (4.3-5.7); RED CELL DISTRIBUTION WIDTH 13.2 % (11.7-14.4)
[2018-11-26 14:11] LABS: ANION GAP 12.6 mmol/L (8-16); CALCIUM 9.2 mg/dL (8.4-10.2); CREATININE, SERUM 1.18 mg/dL (0.72-1.25); POTASSIUM 4.6 mmol/L (3.5-5.1)
[2018-11-26 14:15] VITALS: BP 144/70
--- NOTE | 2018-11-26 14:19 | NUR ---
Received patient from PACU, s/p TURP and a/ox3, no c/o pains, VSS and no distress. Serna [address] with CBI, able to make needs known, in bed, call light within reach, bed in low locked position, will monitor.
[2018-11-26] MEDS: CEFTRIAXONE SOD 1 GM/NS 50 ML 50 ML IV SCH (14:30)
[2018-11-26 14:41] VITALS: BP 144/70
--- NOTE | 2018-11-26 15:57 | NUR ---
Call from Dr. Wright and to resume all home meds besides anticoagulants/antiplatelets.
[2018-11-26 16:00] VITALS: BP 153/74
[2018-11-26] MEDS: DOCUSATE SODIUM 100 MG CAP PO SCH (16:30)
[2018-11-26] MEDS ORDERED: ONDANSETRON HCL INJ 2MG/ML 2ML 2 MG/ML VIAL ONE (17:36)
[2018-11-26] MEDS ORDERED: DEXAMETHASONE SOD PHOS INJ 4 MG/ML VIAL ONE (17:36)
[2018-11-26] MEDS ORDERED: LIDOCAINE HCL 2% LOCAL INJ 5 ML SDV VIAL INJ ONE (17:36)
[2018-11-26] MEDS ORDERED: PROPOFOL IV EMULSION 10 MG/ML 20 ML VIAL ONE (17:36)
[2018-11-26] MEDS ORDERED: SEVOFLURANE INHAL SOLN 250 ML PEN BTL ONE (17:36)
[2018-11-26] MEDS: PHENAZOPYRIDINE HCL 100 MG TAB PO SCH (19:07)
--- NOTE | 2018-11-26 19:13 | NUR ---
received patient aaox3, denies pain, denies needs. bed locked and in lowest position, call light within easy reach.
[2018-11-26 20:00] VITALS: BP 125/71
[2018-11-26] MEDS: LISINOPRIL 2.5 MG TAB PO SCH (21:19)
[2018-11-26] MEDS: ATORVASTATIN 20 MG TAB PO SCH (21:19)
[2018-11-26] MEDS: TAMSULOSIN HCL 0.4 MG CAP PO SCH (21:19)
[2018-11-26 21:20] VITALS: BP 125/71
--- NOTE | 2018-11-26 23:55 | NUR ---
report given to oncoming nurse for continuity of care
[2018-11-27] VITALS (8 sets, daily range): BP systolic 121–149; BP diastolic 65–77
[2018-11-27] MEDS: D5.45%NS/KCL 20MEQ 1,000 ML IV SCH (00:20)
[2018-11-27 06:04] LABS: BASOPHILS # (AUTO) 0.1 (0.0-0.1); BASOPHILS % 0.4 % (0.0-1.0); EOSINOPHILS # (AUTO) 0.2 (0.0-0.4); EOSINOPHILS % 1.3 % (0.0-6.0); HEMATOCRIT 42.2 % (38.2-49.6); HEMOGLOBIN 13.8 g/dL (14.0-18.0); LYMPHOCYTES # (AUTO) 1.3 (1.0-3.2); LYMPHOCYTES % 10.9 % (18.0-39.1); MEAN CORPUSCULAR HEMOGLOBIN 31.3 pg (28-32); MEAN CORPUSCULAR HGB CONC 32.7 g/dL (31-35); MEAN CORPUSCULAR VOLUME 95.7 fL (81-99); MONOCYTES # (AUTO) 1.1 (0.2-0.8); MONOCYTES % 9.3 % (4.4-11.3); NEUTROPHILS # (AUTO) 9.3 (2.1-6.9); NEUTROPHILS % 77.7 % (38.7-80.0); PLATELET COUNT 161 x10e3/uL (140-360); RED BLOOD COUNT 4.41 x10e6/uL (4.3-5.7); RED CELL DISTRIBUTION WIDTH 12.9 % (11.7-14.4)
[2018-11-27 06:20] LABS: ANION GAP 11.5 mmol/L (8-16); BLOOD UREA NITROGEN 18 mg/dL (7-26); BUN/CREATININE RATIO 16 (6-25); CARBON DIOXIDE 27 mmol/L (22-29); CHLORIDE 106 mmol/L (98-107); CREATININE, SERUM 1.11 mg/dL (0.72-1.25); EST GLOMERULAR FILTRATION RATE > 60 ML/MIN (60-); GLUCOSE 125 mg/dL (74-118); POTASSIUM 4.5 mmol/L (3.5-5.1); SODIUM 140 mmol/L (136-145)
--- NOTE | 2018-11-27 07:12 | NUR ---
pt sitting upright in bed resp even and unlabored at this time no distress noted, pt has CBI going at this time, pt able to make needs known. no c/o pain when asked, call light in reach.
[2018-11-27] MEDS: LUBIPROSTONE 24 MCG CAP PO SCH (08:00)
[2018-11-27] MEDS: FINASTERIDE 5 MG TAB PO SCH (09:00)
[2018-11-27] MEDS ORDERED: NON-FORMULARY MEDICATION ([Iron] 65 MG) PO SCH (09:00)
[2018-11-27] MEDS: FERROUS SULFATE 325 MG TAB PO SCH (09:00)
[2018-11-27] MEDS: MAGNESIUM OXIDE 400 MG TAB PO SCH (09:00)
[2018-11-27] MEDS: PHENAZOPYRIDINE HCL 100 MG TAB PO SCH ×3 (09:00→16:54)
[2018-11-27] MEDS: DOCUSATE SODIUM 100 MG CAP PO SCH ×2 (09:00→16:54)
[2018-11-27] MEDS ORDERED: NON-FORMULARY MEDICATION (Calcium Carbonate (Calcium) 1 TAB) PO SCH (09:00)
[2018-11-27] MEDS ORDERED: LUBIPROSTONE 24 MCG CAP PO SCH (09:00)
[2018-11-27] MEDS: CALCIUM CARBONATE 500 MG CHEWABLE TABS PO SCH (09:00)
--- NOTE | 2018-11-27 09:18 | History and Physical ---
PRIMARY CARE PHYSICIAN: Cash Arora DO REFRIGERATOR REPAIR TECHNICIAN: Papo Doss MD CHIEF COMPLAINT: Status post TURP procedures. Hematuria. HISTORY: An 83-year-old male with history of right nephrectomy. The patient came in postoperative care for his prostate surgery, TURP. The patient is otherwise stable. He is comfortable at this time. He does have a Serna catheter in place. The patient does have atrial fibrillation, rate controlled now. He is on anticoagulant therapy. Gross hematuria is improving. PAST MEDICAL HISTORY: Atrial fibrillation, hypertension, coronary artery disease with previous bypass surgery. History of dyslipidemia, osteoarthritis. Recurrent urinary tract infection, urinary retention, enlarged prostate. PAST SURGICAL HISTORY: Bypass surgery. Knee surgery. Right nephrectomy. SOCIAL HISTORY: The patient does not smoke or use alcohol. No recreational drugs. ALLERGIES: NO KNOWN ALLERGIES. HOME MEDICATIONS: List is reviewed. REVIEW OF SYSTEMS: Hematuria, postoperative care with TURP procedures. PHYSICAL EXAMINATION: VITAL SIGNS: Temperature is 98, blood pressure 130/75, pulse rate 56, and respirations 18. GENERAL: The patient is not in acute distress. He is awake. HEENT: Normocephalic and atraumatic. Anicteric. NECK: Supple grossly. PULMONARY: Diminished breath sounds without any wheezing or rales. CARDIOVASCULAR: S1, S2. Atrial fibrillation, rate controlled. ABDOMEN: Soft, nontender, and nondistention. EXTREMITIES: No gross cyanosis or edema. NEUROLOGIC: No gross focal deficit. LABORATORY DATA: Sodium is 140, potassium 4.5, chloride 106, bicarb 27, BUN 18, creatinine 1.1, and glucose 125. WBC is 11.9, hemoglobin 13.8, hematocrit 42.2, and platelets is 161. IMPRESSION: 1. Status post transurethral resection of the prostate. 2. Serna catheter in place with hematuria. 3. Atrial fibrillation, rate controlled. 4. Dyslipidemia. 5. Hypertension. 6. History of coronary artery disease, stable. PLAN: Continue with continuous irrigation of the Serna catheter. Repeated lab work. Continue antibiotics and postoperative care. We will monitor the patient closely. MD ROBERT Kaamra/KATHERINL /[id number]
[2018-11-27] MEDS: METOPROLOL SUCCINATE 50 MG TAB XL PO SCH (11:59)
[2018-11-27] MEDS: CEFTRIAXONE SOD 1 GM/NS 50 ML 50 ML IV SCH (13:35)
[2018-11-27] MEDS ORDERED: FENTANYL CITRATE/PF 100MCG/2 ML INJ ONE (18:47)
--- NOTE | 2018-11-27 19:35 | NUR ---
REPORT GIVEN TO ONCOMING NURSE. FOR CONTINUED CARE.
[2018-11-27] MEDS: TAMSULOSIN HCL 0.4 MG CAP PO SCH (21:38)
[2018-11-27] MEDS: ATORVASTATIN 20 MG TAB PO SCH (21:38)
[2018-11-27] MEDS: LISINOPRIL 2.5 MG TAB PO SCH (21:38)
[2018-11-28] VITALS: BP 116/66
[2018-11-28 04:00] VITALS: BP 113/69
--- NOTE | 2018-11-28 06:40 | NUR ---
DR. MARSHAL SALGADO.
[2018-11-28 06:49] LABS: BASOPHILS # (AUTO) 0.1 (0.0-0.1); BASOPHILS % 0.7 % (0.0-1.0); EOSINOPHILS # (AUTO) 0.8 (0.0-0.4); EOSINOPHILS % 7.7 % (0.0-6.0); HEMATOCRIT 42.9 % (38.2-49.6); HEMOGLOBIN 14.5 g/dL (14.0-18.0); LYMPHOCYTES # (AUTO) 1.6 (1.0-3.2); LYMPHOCYTES % 14.8 % (18.0-39.1); MEAN CORPUSCULAR HEMOGLOBIN 31.7 pg (28-32); MEAN CORPUSCULAR HGB CONC 33.8 g/dL (31-35); MEAN CORPUSCULAR VOLUME 93.7 fL (81-99); MONOCYTES # (AUTO) 1.1 (0.2-0.8); MONOCYTES % 10.4 % (4.4-11.3); PLATELET COUNT 141 x10e3/uL (140-360); RED BLOOD COUNT 4.58 x10e6/uL (4.3-5.7); RED CELL DISTRIBUTION WIDTH 13.2 % (11.7-14.4)
--- NOTE | 2018-11-28 07:00 | NUR ---
BEDSIDE ROUNDS COMPLETE NO DISTRESS NOTED, UPDATED ON POC VOICED UNDERSTANDING, DENIES PAIN AT THIS TIME, SHUKLA TO BSD WITH YELLOW URINE NOTED NO OTHER CO VOICED CALL LIGHT IN REACH WILL CONTINUE TO MONITOR
[2018-11-28 07:08] LABS: ANION GAP 11.3 mmol/L (8-16); CALCIUM 9.3 mg/dL (8.4-10.2); CREATININE, SERUM 1.25 mg/dL (0.72-1.25); POTASSIUM 4.3 mmol/L (3.5-5.1)
--- NOTE | 2018-11-28 07:35 | NUR ---
REPORT GIVEN TO ONCOMING NURSE FOR CONTINUITY OF CARE. PATIENT STABLE CONDITION. CALL LIGHT WITHIN REACH.
--- NOTE | 2018-11-28 08:26 | NUR ---
CM SPOKE TO PATIENT AT BEDSIDE REGARDING HOME HEALTH ORDER AND DISCHARGE PLAN. PATIENT INFORMED OF HOME HEALTH SERVICES IN DETAIL. PATIENT AGREE TO HOME HEALTH. PATIENT GIVEN CHOICES FOR IN- NETWORK AND OUT OF NETWORK PROVIDERS. PATIENT CHOSE IN NETWORK- [facility]. PATIENT SIGNED CHOICE LETTER AND CHOICE LETTER PLACED IN CHART. CLINICAL SENT TO [facility]. [facility] (P) [phone] (F) [phone] LIAISON: JAQUELINE RAMIREZ PATIENT KNOWS TO CALL CM IF HOME HEALTH HAS NOT CONTACTED THEM WITHIN 24 HOURS POST DISCHARGE.
[2018-11-28 08:31] VITALS: BP 115/69
--- NOTE | 2018-11-28 08:32 | NUR ---
DISCHARGE DISPOSITION: PATIENT DISCHARGING HOME WITH HOME HEALTH FROM THE FOLLOWING PROVIDER: [facility] (P) [phone] (F) [phone] LIAISON: JAQUELINE RAMIREZ CALL IF HOME HEALTH HAS NOT CONTACTED YOU WITHIN [address] [facility] MAINTE[facility] SUPERVISOR MECHANICAL: JAQUELINE TAN [phone]
--- NOTE | 2018-11-28 08:43 | Discharge Summary ---
CORPORATE PHYSICAL SECURITY SUPERVISOR: Papo Doss MD FINAL DIAGNOSIS: Status post transurethral resection of the prostate done by Dr. Papo Doss. SUMMARY: An 83-year-old male with enlarged prostate, urinary retention, and recurrent urinary tract infection, is now status post TURP procedures. The patient is otherwise stable. He will be discharged home with the Serna catheter. Medication including Tylenol No. 3 p.r.n. for pain and Levaquin 250 mg daily for 7 days. The patient will resume his home medication. He will be discharged home with the Serna catheter. With respect to his Xarelto, I have recommended that the patient to hold Xarelto until this coming Saturday and he can resume if the urine continued to be clear without blood. The patient is otherwise stable. He does have atrial fibrillation on Xarelto. The patient is stable and discharged home today. MD ROBERT Kamara/OLINDA /[id number]
[2018-11-28 09:00] VITALS: BP 115/69
[2018-11-28] MEDS: CALCIUM CARBONATE 500 MG CHEWABLE TABS PO SCH (09:00)
[2018-11-28] MEDS: METOPROLOL SUCCINATE 50 MG TAB XL PO SCH (09:00)
[2018-11-28] MEDS: DOCUSATE SODIUM 100 MG CAP PO SCH (09:00)
[2018-11-28] MEDS: MAGNESIUM OXIDE 400 MG TAB PO SCH (09:00)
[2018-11-28] MEDS: FINASTERIDE 5 MG TAB PO SCH (09:00)
[2018-11-28] MEDS: PHENAZOPYRIDINE HCL 100 MG TAB PO SCH (09:00)
[2018-11-28] MEDS: FERROUS SULFATE 325 MG TAB PO SCH (09:00)
[2018-11-28] MEDS: LUBIPROSTONE 24 MCG CAP PO SCH (09:00)
[2018-11-28] MEDS ORDERED: ONDANSETRON HCL 4 MG ORAL DISINTEGRATING TAB PO PRN (10:00)
[2018-11-28 12:19] VITALS: BP 121/69
--- NOTE | 2018-11-28 12:58 | NUR ---
IMM EXPLAINED TO PT, SIGNED BY PT AND PLACED IN CHART COPY TO PT IN CARE TRANSITIONS FOLDER
[2018-11-28] MEDS ORDERED: LEVAQUIN500 MG PO (13:51)
[2018-11-28] MEDS ORDERED: TYLENOL WITH C1 EACH PO (13:51)
--- NOTE | 2018-11-28 14:02 | NUR ---
ALANNA CALLED DR. IRA ARAYA OFFICE @ [phone] AND SPOKE TO JESS NAVARRO MD REGARDING PATIENT DISCHARGE PLAN. HOME HEALTH COMPANIES ARE ABLE TO ADMIT PATIENT BUT UNABLE TO SEE PATIENT TOMORROW DUE TO LOW STAFFING AND HOLIDAY. PATIENT WILL BE SEEN SATURDAY PER HOME HEALTH. ALANNA CALLED TO INQUIRE IF MD WANTS TO CONTINUE TO DISCHARGE PATIENT OR KEEP PATIENT IN HOUSE AND DISCHARGE SATURDAY. ALANNA SPOKE WITH DR. ARAYA REGARDING ABOVE SITUATION. STATES FOR NURSING TO EDUCATE PATIENT AND DO TEACH BACK THEN SEND HOME TODAY. STATES IT IS OKAY THAT HOME HEALTH WILL SEE PATIENT SATURDAY.
--- NOTE | 2018-11-28 16:20 | NUR ---
PT INSTRUCTED ON IRRIGATION OF SHUKLA, TRANSITION BETWEEN LEG BAG AND BEDSIDE BAG, VOICED UNDERSTANDING, DEMONSTRATED BACK TO NURSE.
== END 2018-11-28 16:15 | disposition home health service (06) | DRG 713 ==
LOC: OR 08:00 → PACU V 13:15 → MED/SURG 14:12
PROVIDERS: ADMIT Internal Medicine; ATTEND Internal Medicine
PROC: 0VB08ZZ Excision of Prostate, Via Natural or Artificial Opening Endoscopic (ICD-10-PCS; principal; 2018-11-26 10:46)
DX: N40.1 Benign prostatic hyperplasia with lower urinary tract symptoms (principal); N39.0 Urinary tract infection, site not specified; I25.810 Atherosclerosis of coronary artery bypass graft(s) without angina pectoris; R33.8 Other retention of urine; Z79.01 Long term (current) use of anticoagulants; I25.2 Old myocardial infarction; I10 Essential (primary) hypertension
CPT/HCPCS: 36415; 74420; 80048; 83735; 85025; 93005; J0696; J1100; J1580; J2001; J2405

== ENCOUNTER → 2020-05-31 | Outpatient (CLI) | payer MEDICARE ==
[~2020-05-31] MED LIST changes: +FENTANYL CITRATE/PF 100MCG/2 ML INJ ONE; +LEVAQUIN500 MG PO; +MIDAZOLAM HCL 2 MG/2 ML VIAL ONE
[2020-05-31 08:55] LABS: HEMOGLOBIN 13.9 g/dL (14.0-18.0)
[2020-05-31 08:58] LABS: INR 0.91; PROTHROMBIN TIME 12.7 seconds (11.9-14.5)
[2020-05-31 08:59] LABS: PARTIAL THROMBOPLASTIN TIME 24.1 seconds (23.8-35.5)
== END ==
LOC: CT 08:08
PROVIDERS: ATTEND Urology
DX: R91.8 Other nonspecific abnormal finding of lung field (principal); C64.1 Malignant neoplasm of right kidney, except renal pelvis; Z01.812 Encounter for preprocedural laboratory examination
CPT/HCPCS: 36415; 49180; 77012; 85014; 85049; 85610; 85730; 88305; J2250; J3010; U0002; 88342; 99152; 99153